=== PATIENT | male | born 1980 | race Hispanic/Latino ===

== ENCOUNTER 2019-01-19 16:30 | Emergency (ER) | payer SELFPAY ==
[2019-01-19] MEDS ORDERED: dexAMETHasone 10 MG/ML VIAL ONE (17:29)
[2019-01-19] MEDS ORDERED: PIPER/TAZO/NS 3.375gm 3.375 GM/100 ML BAG ONE (17:29)
[2019-01-19 18:08] LABS: Absolute Lymphocytes (CBC) 0.8 K/uL (0.7-4.9); Basophils % 0.2 % (0-1.3); Hematocrit 38.4 % (39.6-49.0); Lymphocytes % 3.8 % (15.3-44.8); MPV 9.8 fL (7.6-11.3); RBC Red Blood Cell Count 4.41 M/uL (4.33-5.43)
[2019-01-19 18:11] LABS: Potassium 3.9 mmol/L (3.5-5.1)
[2019-01-19 18:59] LABS: Thyroid Stimulating Hormone 1.2 uIU/mL (0.360-3.740)
--- NOTE | 2019-01-19 19:06 | RAD REPORT ---
EXAM DESCRIPTION: CT - Thorax Wo Con - 01/19/2019 6:45 pm CLINICAL HISTORY: Chest pain COMPARISON: none TECHNIQUE: Computed axial tomography of the chest was obtained. Contrast was not requested. All CT scans are performed using dose optimization technique as appropriate and may include automated exposure control or mA/KV adjustment according to patient size. FINDINGS: The evaluation of mediastinum, wm and vessels is limited secondary to lack of IV contras t administration. Small to moderate amount of pneumomediastinum is present extending superiorly into the neck. Small am ount of ill-defined fluid is present within the anterior mediastinum. Minimal fluid is present within the middle mediastinum. A moderate amount of subcutaneous emphysema is present within the neck A pneumothorax is not present No mediastinal or hilar lymphadenopathy is seen. A pleural effusion is not present. No pericardial effusion [id number] opacities within the lower lobes. IMPRESSION: Small to moderate amount of pneumomediastinum extending into the neck [id number] opacities within the lower lobes may indicate pneumonia
--- NOTE | 2019-01-19 19:13 | RAD REPORT ---
EXAM DESCRIPTION: CT - Soft Tissue Neck W/Contr - 01/19/2019 6:36 pm CLINICAL HISTORY: Neck pain with sore throat COMPARISON: None. TECHNIQUE: Computed axial tomography of the neck was obtained. 50 cc Isovue 300 was administered in travenously. Coronal and sagittal reconstruction was performed. All CT scans are performed using dose optimization technique as appropriate and may include automated exposure control or mA/KV adjustment according to patient size. FINDINGS: A moderate amount of subcutaneous emphysema is present within the neck. Asymmetric soft tissue is present within the region of the left piriform sinus with mild narrowing of the airway. The left piriform sinus appears edematous. A fluid-filled abscess is not seen. The parotid, submandibular and thyroid glands appear unremarkable. IMPRESSION: Moderate subcutaneous emphysema within the neck. Left piriform sinus appears edematous. This may indicate an inflammatory/infectious process. Direct v isualization may be helpful
--- NOTE | 2019-01-19 19:43 | RAD REPORT ---
EXAM DESCRIPTION: [facility] Single View01/19/2019 5:57 pm CLINICAL HISTORY: Chest pain COMPARISON: none FINDINGS: Small amount of pneumomediastinum is present. The arir extends into the neck. Mild bibasilar lung opacities may indicate pneumonia Heart is normal size
[2019-01-19] MEDS ORDERED: MORPHINE 4 MG/ML SYR ONE (19:47)
[2019-01-19] MEDS ORDERED: ONDANSETRON 4 MG/2 ML VIAL ONE (19:47)
[2019-01-19 20:05] LABS: Blood Morphology Comment NOT SEEN (NOT SEEN)
[2019-01-19] MEDS ORDERED: CALCIUM GLUCONATE 1 GM IVPB 1 GM/50 ML BAG IV ONE (20:18)
--- NOTE | 2019-01-19 20:30 | ER ---
Nurse's Notes [facility] Name: Shad Raymond Age: 38 yrs Sex: Male : 1980 Arrival Date: 01/19/2019 Time: 16:32 Bed 16 Private MD: Diagnosis: Pneumonia due to other specified bacteria;Subcutaneous Emphysema ;Infraglotic throat infection ;Hypocalcemia;Hypoparathyroidism Presentation: 01/19 16:37 Presenting complaint: Sore throat and fever x 2-3 days. TMAX 101. Transition of care: hb patient was not received from another setting of care. Onset of symptoms was January 17, 2019. Risk Assessment: Do you want to hurt yourself or someone else? Patient reports no desire to harm self or others. Care prior to arrival: None. 16:37 Method Of Arrival: Ambulatory 16:37 Acuity: MARILUZ 4 hb 17:00 Acuity: MARILUZ 2 aj1 Historical: - Allergies: 16:40 No Known Allergies; hb - Home Meds: 20:10 glipizide 5 mg Oral tab 1 tab 2 times per day [Active]; metformin 500 mg Oral tab 1 tab aa1 2 times per day [Active]; - PMHx: 20:10 Diabetes - NIDDM; aa1 - Immunization history:: Adult Immunizations up to date. - Social history:: Smoking status: Patient uses tobacco products, smokes one-half pack cigarettes per day. - Ebola Screening: : No symptoms or risks identified at this time. Screenin:05 Abuse screen: Denies threats or abuse. Denies injuries from another. Nutritional aj1 screening: No deficits noted. Tuberculosis screening: No symptoms or risk factors identified. Assessment: 17:05 General: Appears uncomfortable, Behavior is calm, cooperative, appropriate for age. aj1 Pain: Complains of pain in neck. Neuro: Level of Consciousness is awake, alert, obeys commands, Oriented to person, place, time, situation. Cardiovascular: Patient's skin is warm and dry. Respiratory: Airway is patent Respiratory effort is even, unlabored, Respiratory pattern is regular, symmetrical, tachypnea Breath sounds are clear bilaterally. GI: No signs and/or symptoms were reported involving the gastrointestinal system. : No signs and/or symptoms were reported regarding the genitourinary system. EENT: Throat is reddened bilaterally . Reports difficulty swallowing sore throat. Derm: Skin is pink, warm \T\ dry. normal. Musculoskeletal: Circulation, motion, and sensation intact. Swelling present in neck. 18:30 Reassessment: Patient transported to CT via wheelchair. aj1 19:00 Reassessment: Patient appears in no apparent distress at this time. Patient and/or aa1 family updated on plan of care and expected duration. Pain level reassessed. Patient is alert, oriented x 3, equal unlabored respirations, skin warm/dry/pink. Awaiting CT results. 20:05 Reassessment: Patient appears in no apparent distress at this time. Patient and/or aa1 family updated on plan of care and expected duration. Pain level reassessed. Patient is alert, oriented x 3, equal unlabored respirations, skin warm/dry/pink. Pt to be transferred; pending acceptance. 20:35 Reassessment: Report given to Nae Brennan RN at [facility]. aa1 21:22 Reassessment: Patient appears in no apparent distress at this time. Patient and/or aa1 family updated on plan of care and expected duration. Pain level reassessed. Patient is alert, oriented x 3, equal unlabored respirations, skin warm/dry/pink. Awaiting EMS for transfer. 21:39 Reassessment: Patient appears in no apparent distress at this time. Patient is alert, aa1 oriented x 3, equal unlabored respirations, skin warm/dry/pink. EMS present for transfer. Vital Signs: 16:39 BP 123 / 77; Pulse 88; Resp 20; Temp 99.2(TE); Pulse Ox 100% on R/A; Weight 79.38 kg; hb Height 5 ft. 10 in. (177.80 cm); Pain 5/10; 17:34 BP 113 / 64; Pulse 117; Resp 18; Temp 99.7(O); Pulse Ox 96% on R/A; 5 18:01 BP 121 / 76; Pulse 112; Resp 25; Pulse Ox 97% on R/A; aj1 18:30 BP 112 / 73; Pulse 112; Resp 32; Pulse Ox 96% on R/A; aj1 20:06 BP 118 / 77; Pulse 98; Resp 24; Pulse Ox 95% on R/A; aa1 21:00 BP 108 / 74; Pulse 90; Resp 20; Temp 98.4; Pulse Ox 96% on R/A; Pain 0/10; aa1 16:39 Body Mass Index 25.11 (79.38 kg, 177.80 cm) hb ED Course: 16:32 Patient arrived in ED. mr 16:39 Triage completed. hb 16:39 Arm band placed on. hb 16:42 Prateek Garnica PA is PHCP. jr8 16:42 Tex Diehl MD is Attending Physician. jr8 16:45 Tika Colvin RN is Primary Nurse. aj1 17:05 Patient has correct armband on for positive identification. Bed in low position. Call aj1 light in reach. Side rails up X 1. workers compensation consultant on. Pulse ox on. NIBP on. 17:05 No provider procedures requiring assistance completed. aj1 17:29 Radiology exam delayed due to lab results not completed at this time. (BUN/Creatinine). jj2 17:30 Inserted saline lock: 20 gauge in right antecubital area, using aseptic technique. aj1 Blood collected. 17:30 Initial lab(s) drawn, by me, sent to lab. First set of blood cultures drawn. aj1 17:53 Second set of blood cultures drawn by me. aj1 17:58 CT Soft Tissue Neck W/contr In Process Unspecified. EDMS 17:58 XRAY Chest (1 view) In Process Unspecified. EDMS 18:45 Thorax Wo Con In Process Unspecified. EDMS 21:39 Patient transferred, IV remains in place. aa1 Administered Medications: 17:30 Drug: Decadron - Dexamethasone 10 mg Route: IVP; Site: right antecubital; aj1 18:00 Drug: Zosyn 3.375 grams Route: IVPB; Infused Over: 60 mins; Site: right antecubital; aj1 19:18 Follow up: IV Status: Completed infusion aa1 19:50 Drug: Zofran 4 mg Route: IVP; Site: right antecubital; aa1 20:50 Follow up: Response: No adverse reaction aa1 19:52 Drug: morphine 4 mg Route: IVP; Site: right antecubital; aa1 20:52 Follow up: Response: No adverse reaction; Pain is decreased; RASS: Alert and Calm (0) aa1 20:25 Drug: Calcium Gluconate 1 grams Route: IVPB; Infused Over: 60 mins; Site: right aa1 antecubital; 21:37 Follow up: IV Status: Completed infusion; IV Intake: 100ml aa1 20:55 Drug: NS 0.9% 1000 ml Route: IV; Rate: 1000 ml; Site: right antecubital; aa1 21:38 Follow up: IV Status: Infusion continued upon transfer; IV Intake: 600ml aa1 Intake: 21:37 IV: 100ml; Total: 100ml. aa1 21:38 IV: 600ml; Total: 700ml. aa1 Outcome: 20:29 ER care complete, transfer ordered by . jr8 21:39 Transferred by ground EMS [place] [facility] form completed. aa1 21:39 Condition: stable 21:39 Instructed on the need for transfer, Demonstrated understanding of instructions. 21:41 Patient left the ED. aa1 Signatures: Dispatcher [employer] EDTika Rockwell RN RN aj1 Zoila Yao RN RN aa1 Margie Arriaga Raines, Prateek Mckay PA PA jr8 Tasneem Chow RN RN hb Martinez, Maria [facility] Corrections: (The following items were deleted from the chart) 19:19 17:05 EENT: Throat has enlarged tonsils bilaterally . aj1 aj1
--- NOTE | 2019-01-19 20:31 | EDPHYS ---
Physician Documentation [facility] Name: Shad Raymond Age: 38 yrs Sex: Male : 1980 Arrival Date: 01/19/2019 Time: 16:32 Bed 16 Private MD: ED Physician Tex Diehl HPI: 01/19 18:46 This 38 yrs old Male presents to ER via Ambulatory with complaints of Sore jr8 Throat. 18:46 The patient presents with sore throat, dysphagia, of both solids and liquids. The jr8 patient describes throat pain as constant. Onset: The symptoms/episode began/occurred gradually, 6 day(s) ago. Severity of symptoms: At their worst the symptoms were moderate, in the emergency department the symptoms are unchanged. Modifying factors: The symptoms are alleviated by nothing, the symptoms are aggravated by swallowing. Associated signs and symptoms: The patient has no apparent associated signs or symptoms. The patient has not experienced similar symptoms in the past. The patient has been recently seen by a physician:. Patient recently seen by clinic and diagnosed with otitis and strep throat. Was given abx shots and put on pain medications and oral antibiotics. Stated that it is getting worse. Referred to ED at that time. Patient stated that his neck feels swollen and he cannot swallow anything. Has not eaten in three days . Historical: - Allergies: 16:40 No Known Allergies; hb - Home Meds: 20:10 glipizide 5 mg Oral tab 1 tab 2 times per day [Active]; metformin 500 mg Oral tab 1 tab aa1 2 times per day [Active]; - PMHx: 20:10 Diabetes - NIDDM; aa1 - Immunization history:: Adult Immunizations up to date. - Social history:: Smoking status: Patient uses tobacco products, smokes one-half pack cigarettes per day. - Ebola Screening: : No symptoms or risks identified at this time. ROS: 18:46 Eyes: Negative for injury, pain, redness, and discharge, Cardiovascular: Negative for jr8 chest pain, palpitations, and edema, Respiratory: Negative for shortness of breath, cough, wheezing, and pleuritic chest pain, Abdomen/GI: Negative for abdominal pain, nausea, vomiting, diarrhea, and constipation, Back: Negative for injury and pain, MS/Extremity: Negative for injury and deformity, Skin: Negative for injury, rash, and discoloration, Neuro: Negative for headache, weakness, numbness, tingling, and seizure. 18:46 ENT: Positive for difficulty handling secretions, difficulty swallowing, sore throat. 18:46 Neck: Positive for pain at rest, swelling, swollen nodes, tenderness. Exam: 18:46 Head/Face: Normocephalic, atraumatic. Eyes: Pupils equal round and reactive to light, jr8 extra-ocular motions intact. Lids and lashes normal. Conjunctiva and sclera are non-icteric and not injected. Cornea within normal limits. Periorbital areas with no swelling, redness, or edema. Cardiovascular: Regular rate and rhythm with a normal S1 and S2. No gallops, murmurs, or rubs. Normal PMI, no JVD. No pulse deficits. Respiratory: Lungs have equal breath sounds bilaterally, clear to auscultation and percussion. No rales, rhonchi or wheezes noted. No increased work of breathing, no retractions or nasal flaring. Abdomen/GI: Soft, non-tender, with normal bowel sounds. No distension or tympany. No guarding or rebound. No evidence of tenderness throughout. Back: No spinal tenderness. No costovertebral tenderness. Full range of motion. Skin: Warm, dry with normal turgor. Normal color with no rashes, no lesions, and no evidence of cellulitis. MS/ Extremity: Pulses equal, no cyanosis. Neurovascular intact. Full, normal range of motion. Neuro: Awake and alert, GCS 15, oriented to person, place, time, and situation. Cranial nerves II-XII grossly intact. Motor strength 5/5 in all extremities. Sensory grossly intact. Cerebellar exam normal. Normal gait. 18:46 ENT: External ear(s): are unremarkable, Ear canal(s): are normal, clear, TM's: are normal, no evidence of bulging, no dullness, no erythema, no fluid levels, no hemotympanum, no rupture, normal bony landmarks, normal mobility, Nose: External nose: no obvious acute abnormality, Nasal septum: is midline, Nasal mucosa: moist, Turbinates: are normal, Mouth: Lips: moist, Oral mucosa: pink and intact, moist, Gums: pink, Tongue: is moist, Posterior pharynx: Airway: patent, Tonsils: bilaterally enlarged, with erythema, with exudate, Uvula: midline, non-edematous, no erythema, swelling, is not appreciated, erythema, that is mild, Voice: is muffled. 18:46 Neck: External neck: swelling, that is moderate, of the right aspect of thyroid, left aspect of thyroid, suprasternal notch, right sternocleidomastoid and left sternocleidomastoid, tenderness, that is moderate, of the thyroid cartilage, right aspect of thyroid, left aspect of thyroid, suprasternal notch, right sternocleidomastoid and left sternocleidomastoid, Trachea: is midline with no obvious abnormalities, ROM/movement: pain, that is moderate, with any movement, limited range of motion, that is moderate, in any direction, Lymph nodes: lymphadenopathy is appreciated, anterior cervical nodes, submandibular nodes. Vital Signs: 16:39 BP 123 / 77; Pulse 88; Resp 20; Temp 99.2(TE); Pulse Ox 100% on R/A; Weight 79.38 kg; hb Height 5 ft. 10 in. (177.80 cm); Pain 5/10; 17:34 BP 113 / 64; Pulse 117; Resp 18; Temp 99.7(O); Pulse Ox 96% on R/A; mh5 18:01 BP 121 / 76; Pulse 112; Resp 25; Pulse Ox 97% on R/A; aj1 18:30 BP 112 / 73; Pulse 112; Resp 32; Pulse Ox 96% on R/A; aj1 20:06 BP 118 / 77; Pulse 98; Resp 24; Pulse Ox 95% on R/A; aa1 21:00 BP 108 / 74; Pulse 90; Resp 20; Temp 98.4; Pulse Ox 96% on R/A; Pain 0/10; aa1 16:39 Body Mass Index 25.11 (79.38 kg, 177.80 cm) hb MDM: 16:42 Patient medically screened. jr8 20:30 Data reviewed: vital signs, nurses notes, lab test result(s), radiologic studies, CT jr8 scan, plain films. Data interpreted: Pulse oximetry: on room air is 96 %. Interpretation: normal. Counseling: I had a detailed discussion with the patient and/or guardian regarding: the historical points, exam findings, and any diagnostic results supporting the discharge/admit diagnosis, lab results, radiology results, the need to transfer to another facility, [facility] does not immediately have the required specialist. ED course: [facility] accepted patient after discussing patient case with them . 01/19 17:26 Order name: CBC with Diff; Complete Time: 21:14 [facility] 01/19 17:26 Order name: Basic Metabolic Panel; Complete Time: 18:18 [facility] 01/19 17:26 Order name: Blood Culture Adult (2) [facility] 01/19 18:18 Order name: TSH; Complete Time: 19:03 [facility] 01/19 18:18 Order name: T4 Free; Complete Time: 19:03 [facility] 01/19 18:18 Order name: Pth,Intact; Complete Time: 19:17 [facility] 01/19 17:27 Order name: CT Soft Tissue Neck W/contr; Complete Time: 19:24 [facility] 01/19 17:27 Order name: XRAY Chest (1 view); Complete Time: 19:50 [facility] 01/19 18:41 Order name: Thorax Wo Con; Complete Time: 19:12 [facility] 01/19 20:05 Order name: Manual Differential; Complete Time: 21:14 [facility] 01/19 17:26 Order name: IV; Complete Time: 18:00 jr Administered Medications: 17:30 Drug: Decadron - Dexamethasone 10 mg Route: IVP; Site: right antecubital; aj1 18:00 Drug: Zosyn 3.375 grams Route: IVPB; Infused Over: 60 mins; Site: right antecubital; aj1 19:18 Follow up: IV Status: Completed infusion aa1 19:50 Drug: Zofran 4 mg Route: IVP; Site: right antecubital; aa1 20:50 Follow up: Response: No adverse reaction aa1 19:52 Drug: morphine 4 mg Route: IVP; Site: right antecubital; aa1 20:52 Follow up: Response: No adverse reaction; Pain is decreased; RASS: Alert and Calm (0) aa1 20:25 Drug: Calcium Gluconate 1 grams Route: IVPB; Infused Over: 60 mins; Site: right aa1 antecubital; 21:37 Follow up: IV Status: Completed infusion; IV Intake: 100ml aa1 20:55 Drug: NS 0.9% 1000 ml Route: IV; Rate: 1000 ml; Site: right antecubital; aa1 21:38 Follow up: IV Status: Infusion continued upon transfer; IV Intake: 600ml aa1 Disposition: 01/19/19 20:29 Transfer ordered to [facility]. Diagnosis are Pneumonia due to other specified bacteria, Subcutaneous Emphysema , Infraglotic throat infection , Hypocalcemia, Hypoparathyroidism. - Reason for transfer: Higher level of care. - Accepting physician is Dr. Amezcua. - Condition is Fair. - Problem is new. - Symptoms have improved. Signatures: Dispatcher [employer] EDMS Tika Colvin RN RN aj1 Zoila Yao RN RN aa1 Prateek Garnica PA PA jr8 Tasneem Chow RN RN hb Corrections: (The following items were deleted from the chart) 20:31 20:29 01/19/2019 20:29 Transfer ordered to [facility]. Diagnosis is jr8 Pneumonia due to other specified bacteria; Subcutaneous Emphysema ; Infraglotic throat infection . Reason for transfer: Higher level of care. Accepting physician is Dr. Amezcua. Condition is Fair. Problem is new. Symptoms have improved. jr8 21:41 20:31 01/19/2019 20:29 Transfer ordered to [facility]. Diagnosis is aa1 Pneumonia due to other specified bacteria; Subcutaneous Emphysema ; Infraglotic throat infection ; Hypocalcemia; Hypoparathyroidism. Reason for transfer: Higher level of care. Accepting physician is Dr. Amezcua. Condition is Fair. Problem is new. Symptoms have improved. jr8
[2019-01-19] MEDS ORDERED: NA CHLORIDE 0.9% 1,000 ML ONE (20:38)
[2019-01-19 21:13] LABS: Platelet Estimate ADEQ
[2019-01-20 07:48] VITALS: BP 108/74; TEMP 98.4; O2SAT 96
== END 2019-01-19 21:41 | disposition short-term general hospital (02) ==
LOC: ER 16:30
DX: J15.8 Pneumonia due to other specified bacteria (principal); T79.7XXA Traumatic subcutaneous emphysema, initial encounter; J02.9 Acute pharyngitis, unspecified; E20.9 Hypoparathyroidism, unspecified; F17.210 Nicotine dependence, cigarettes, uncomplicated; E11.9 Type 2 diabetes mellitus without complications
CPT/HCPCS: 36415; 70491; 71045; 71250; 80048; 83970; 84439; 84443; 85025; 87040; J0610; J1100; J2405; J2543; J7030; Q9967